=== PATIENT | male | born 1990 | race Caucasian/White ===

== ENCOUNTER 2024-10-22 08:45 | Emergency (ER) | payer OTHER, SELFPAY ==
--- NOTE | ~2024-10-22 | CT_ITS ---
EXAM: CT abdomen pelvis wo con - 10/22/2024 10:20 CDT History: 34 years old Male with right groin pain, testicular pain TECHNIQUE: Multidetector CT of the abdomen and pelvis without contrast. Coronal and sagittal reforma ts were also provided for review. Automatic exposure control was used for this study. COMPARISON: None Available. FINDINGS: VISUALIZED CHEST: Visualized lungs are clear. ABDOMEN and PELVIS: LIVER: Within normal limits. GALLBLADDER: No calcified gallstones. BILE DUCTS: No dilatation. SPLEEN: Within normal limits. PANCREAS: Within normal limits. ADRENAL GLANDS: Within normal limits. KIDNEYS and URETERS: No hydronephrosis or hydroureter. No nephroureterolithiasis. URINARY BLADDER: Within normal limits. STOMACH and BOWEL: No abnormal bowel wall thickening. No obstruction. REPRODUCTIVE ORGANS: Within normal limits. MESENTERY/PERITONEAL CAVITY: No free fluid or pneumoperitoneum. LYMPH NODES: No abdominal or pelvic lymphadenopathy. ABDOMINAL WALL: Within normal limits. VASCULATURE: Within normal limits. MUSCULOSKELETAL: Within normal limits. IMPRESSION: No evidence of acute pathology in the abdomen and pelvis. Reviewed, dictated and finalized at location A.
--- NOTE | ~2024-10-22 | US_ITS ---
EXAMINATION: US scrotum doppler DATE: 10/22/2024 09:43 INDICATION: Testicular pain TECHNIQUE: Sonographic evaluation of the scrotum was performed assessing grayscale appearance and col or Doppler flow. Spectral Doppler evaluation was also performed. COMPARISON: None. FINDINGS: RIGHT TESTICLE: The right testicle is unremarkable in echogenicity and size and measures 3.5 x 2.2 x 2.7 cm. Arterial and venous flow are present. RIGHT EPIDIDYMIS: The right epididymis is unremarkable in echogenicity and size and measures 11.4 mm Prominent vasculature with Valsalva. Pre-Valsalva measurement less than 3 mm. LEFT TESTICLE: The left testicle is unremarkable in echogenicity and size and measures 4.2 x 2.2 x 3.0 cm. Arterial and venous flow are demonstrated. LEFT EPIDIDYMIS: The left epididymis is unremarkable in echogenicity and size and measures 17.7 mm. Prominent vasculature with Valsalva. Pre-Valsalva measurement less than 3 mm. IMPRESSION: Unremarkable sonographic evaluation of the scrotum, as detailed above. Reviewed, dictated and finalized at location A.
[2024-10-22 08:53] VITALS: BP 123/69; PULSE 66; RESP 18; TEMP 36.7; O2SAT 99
--- OUTSIDE RECORDS SUMMARY | 2024-10-22 09:33 | XMS_ITS | Referral Summary ---
Author Organization [facility] Address [address] [place] [id number] Care Team Providers Care Awake Overnight Counselor Name Role Phone Referral, Self Unavailable Unavailable No, Physician Primary Care Provider [phone] Allergies Active Allergy Reactions Criticality Noted Date Comments Other Sneezing Low 05/03/2022 Pet dander from cats and dogs Medications No known medications Active Problems Problem Noted Date Diagnosed Date Axillary mass, right 05/19/2022 Social History Tobacco Use Types Packs/Day Years Used Date Smoking Tobacco: Former Cigarettes 0.5 10 1 - 04/16/2022 Smokeless Tobacco: Never Tobacco Cessation:Counseling Given: Not Answered Personal Safety Answer Date Recorded Getting School Help Needed Not on file 06/17 Sex and Gender Information Value Date Recorded Sex Assigned at Not on file Legal Sex Male 11:15 AM GENERAL INTERNIST AND PHYSICIAN LEADER Gender Identity Not on file Sexual Orientation Not on file Last Filed Vital Signs Vital Sign Reading Time Taken Comments Blood Pressure 110/68 05/03/2022 1:26 PM GENERAL INTERNIST AND PHYSICIAN LEADER Pulse 69 05/03/2022 1:26 PM GENERAL INTERNIST AND PHYSICIAN LEADER Temperature 36.8 C (98.2 F) 05/03/2022 1:26 PM GENERAL INTERNIST AND PHYSICIAN LEADER Respiratory Rate 20 05/03/2022 1:26 PM GENERAL INTERNIST AND PHYSICIAN LEADER Oxygen Saturation 98% 05/03/2022 1:26 PM GENERAL INTERNIST AND PHYSICIAN LEADER Inhaled Oxygen Concentration - - Weight 101.8 kg (224 lb 6.4 oz) 05/03/2022 1:26 PM GENERAL INTERNIST AND PHYSICIAN LEADER Height - - Body Mass Index - - Plan of Treatment Not on file [place] Care Teams Awake Overnight Counselor Relationship Specialty Start Date End Date No, Physician PCP - General 04/19/22 Referral, Self 04/19/22
--- OUTSIDE RECORDS SUMMARY | 2024-10-22 09:33 | XMS_ITS | Clinical Summary ---
Author Organization [facility] Address [address] [place] [id number] Care Team Providers Care Metal Drilling Machine Operator Name Role Phone Referral, Self Unavailable Unavailable No, Physician Primary Care Provider [phone] Allergies Active Allergy Reactions Criticality Noted Date Comments Other Sneezing Low 05/03/2022 Pet dander from cats and dogs Medications No known medications Active Problems Problem Noted Date Diagnosed Date Axillary mass, right 05/19/2022 Family History * Patient is adopted Medical History Relation Name Comments Brain cancer Mother's Brother Relation Name Status Comments Mother's Brother Social History Tobacco Use Types Packs/Day Years Used Date Smoking Tobacco: Former Cigarettes 0.5 10 1 - 04/16/2022 Smokeless Tobacco: Never Tobacco Cessation:Counseling Given: Not Answered Personal Safety Answer Date Recorded Getting School Help Needed Not on file 06/17 Sex and Gender Information Value Date Recorded Sex Assigned at Not on file Legal Sex Male 11:15 AM AUDITOR INTERNAL Gender Identity Not on file Sexual Orientation Not on file Obstetrics History Last Filed Vital Signs Vital Sign Reading Time Taken Comments Blood Pressure 110/68 05/03/2022 1:26 PM AUDITOR INTERNAL Pulse 69 05/03/2022 1:26 PM AUDITOR INTERNAL Temperature 36.8 C (98.2 F) 05/03/2022 1:26 PM AUDITOR INTERNAL Respiratory Rate 20 05/03/2022 1:26 PM AUDITOR INTERNAL Oxygen Saturation 98% 05/03/2022 1:26 PM AUDITOR INTERNAL Inhaled Oxygen Concentration - - Weight 101.8 kg (224 lb 6.4 oz) 05/03/2022 1:26 PM AUDITOR INTERNAL Height - - Body Mass Index - - Plan of Treatment Health Maintenance Due Date Last Done Comments Depression Screening 1992 Hepatitis C Screening 1992 DTaP/Tdap/Td Vaccine (1 - Tdap) 02/17/2003 Varicella Vaccines (1 of 2 - 13+ 2-dose series) 02/17/2005 Hepatitis B Screening 02/17/2010 Regular Well Visit/Exam 18-64 02/17/2010 Influenza Vaccine (Season Ended) 2024 HPV Vaccines Aged Out No longer eligi ble based on patient's age to complete this topic Pneumococcal vaccine <65 Aged Out No longer eligible based on patient's age to complete this topic Insurance CHOICE PRF PPO [place] Care Teams Metal Drilling Machine Operator Relationship Specialty Start Date End Date No, Physician PCP - General 04/19/22 Referral, Self 04/19/22
[2024-10-22 10:06] LABS: Add Urine Microscopic? NO; Appearance Urine Clear (Clear); Glucose Urine UA Negative (Negative); Leukocyte Esterase Ur Negative LEU/UL (Negative); Nitrate Urine Negative (Negative); Specific Grav Ur 1.025 (1.001-1.035)
--- NOTE | 2024-10-22 10:32 | ED_ITS ---
HPI - Male Genitourinary General Chief complaint: Urogenital-Male Stated complaint: testicular pain Time Seen by Provider: 10/22/24 09:09 Source: patient Mode of arrival: ambulatory Limitations: no limitations History of Present Illness HPI Narrative: Patient presents to the emergency department for right testicular pain. Ongoing since this morning. No recent injuries. Reports some associated pain in the right lower quadrant. Denies fevers, dysuria, hematuria. Related Data Allergies Allergy/AdvReac Type Severity Reaction Status Date / Time No Known Allergies Allergy Verified 10/22/24 09:02 Review of Systems Review of Systems: All systems reviewed & are unremarkable except as noted in HPI and below PMFSH Past Medical History Medical History (Updated 10/22/24 @ 11:45 by Jennifer Dietrich PA-C) No active medical problems Exam Narrative: GENERAL: Well-appearing, well-nourished, and in no acute distress. HEAD: Normocephalic, atraumatic. EYES: EOMI. CHEST: Clear to auscultation. No respiratory distress. No wheezes rales or rhonchi HEART: Regular rate and rhythm. No murmur heard. Normal peripheral pulses. ABDOMEN: Soft, nontender, nondistended, normal active bowel sounds. EXTREMITIES: Normal range of motion. No edema. SKIN: Warm, dry, no rash. NEURO: No focal deficits. Alert and oriented x3. PSYCH: Normal mood and affect MALE GENITAL: No testicular swelling, masses or redness noted. Mild tenderness to palpation of the right testicle Course Course Emergency Course: Patient was updated on his workup and agrees with plan of care. Vital Signs Vital signs: Vital Signs Temperature 98.0 F 10/22/24 08:53 Pulse Rate 66 10/22/24 08:53 Respiratory Rate 18 10/22/24 08:53 Blood Pressure 123/69 10/22/24 08:53 Pulse Oximetry 99 10/22/24 08:53 Oxygen Delivery Room Air 10/22/24 08:53 Temperature 98.5 F 10/22/24 11:12 Pulse Rate 81 10/22/24 11:12 Respiratory Rate 18 10/22/24 11:12 Blood Pressure 114/83 10/22/24 11:12 Pulse Oximetry 99 10/22/24 11:12 Oxygen Delivery Room Air 10/22/24 08:53 MDM - Male Genitourinary MDM Narrative Medical decision making narrative: Patient presents to the ER for right testicular pain/groin pain. Patient is afebrile and nontoxic appearing. His vitals are stable. Urine without evidence of infection. Chlamydia, gonorrhea and Trichomonas are negative. Scrotal ultrasound without acute findings. CT abdomen pelvis without acute findings. Patient was updated on his workup and agrees with plan of care. He will be given follow-up with urology. He was given warnings to return to the ER Differential Diagnosis Differential diagnosis: Likely urinary tract infection, epididymitis and other (kidney stone) Lab Data Attestation: I reviewed the patient's lab results. Labs: Lab Results 10/22/24 Range/Units 09:54 Urine Color Yellow (Yellow) Urine Appearance Clear (Clear) Urine pH 5.5 (5.0-9.0) Ur Specific Patriot 1.025 (1.001-1.035) Urine Protein Negative (Negative) mg/dL Urine Glucose (UA) Negative (Negative) mg/dL Urine Ketones Trace H (Negative) mg/dL Ur Blood (Man) Negative (Negative) Urine Nitrate Negative (Negative) Urine Bilirubin Negative (Negative) Urine Urobilinogen 1.0 (<2.0) mg/dL Leukocyte Esterase Rfl Negative (Negative) PERICO/UL C. trachomatis (PCR) Not detected (NOT DETECTE) N. gonorrhoeae (PCR) Not detected (NOT DETECTE) T. vaginalis (PCR) Not detected (NOT DETECTE) Imaging Data Radiologist's impression: ITS Impressions Scrotum Ultrasound 10/22/24 09:55 IMPRESSION: Unremarkable sonographic evaluation of the scrotum, as detailed above. Abdomen/Pelvis CT 10/22/24 10:45 IMPRESSION: No evidence of acute pathology in the abdomen and pelvis. Critical Care Time Critical Care Time Critical Care Time: No Discharge Plan Discharge Clinical Impression: Pain in right testicle Patient Disposition: Home Condition: Stable Instructions: Testicle Pain (ED) Additional Instructions: Return to the ER if you experience fever, abdominal pain with nausea and vomiting, you are unable to keep down liquids or solids, pain or burning with urination, blood in the urine or any other symptoms that are concerning to you Wear good scrotal supporting underwear. Anti-inflammatories or Tylenol as needed for pain Follow up with urology Patient Language: Micronesian Follow-up/Referrals: Saji Falcon MD [Physician] - PHYSICIAN,DRYWALL TAPER HELPER [Primary Care Provider] -
[2024-10-22 11:12] VITALS: BP 114/83; PULSE 81; RESP 18; TEMP 36.9; O2SAT 99
[2024-10-22 11:12] LABS: Trichomonas Vag PCR NOT DETECTED (NOT DETECTE)
[2024-10-22 11:53] VITALS: BP 132/65; PULSE 67; RESP 18; TEMP 36.8; O2SAT 100
== END 2024-10-22 11:55 | disposition home or self-care (01) ==
PROVIDERS: Emergency Provider Physician Assistant
DX: N50.811 Right testicular pain (principal)
CPT/HCPCS: 74176; 76870; 81003; 87491; 87591; 87661; 93976; 99284